=== PATIENT | male | born 1990 | race Caucasian/White ===

== ENCOUNTER → 2024-06-01 13:25 | Outpatient (CLI) | payer SELFPAY ==
--- NOTE | 2024-06-01 13:38 | DI.RAD.S_ITS ---
PROCEDURE: XR TIBIA FIBULA LT 2V INDICATIONS: Lower extremity injury TECHNIQUE: 2 views of the tibia and fibula were acquired. COMPARISON: None. FINDINGS: Bones: No fractures or dislocations. No suspicious bony lesions. Soft tissues: No suspicious soft tissue calcifications or masses. IMPRESSION: No acute bony abnormality. Dictated by: Rolando Perera M.D. on 06/01/2024 at 16:44 Approved by: Rolando Perera M.D. on 06/01/2024 at 16:45
--- NOTE | 2024-06-01 13:38 | DI.RAD.S_ITS ---
PROCEDURE: XR ANKLE LT MIN 3V INDICATIONS: Lower extremity injury TECHNIQUE: 3 views of the ankle were acquired. COMPARISON: None. FINDINGS: No acute fracture or dislocation. The ankle mortise is preserved on the nonweightbearing view. No talar dome osteochondral defect. Small tibiotalar joint effusion. IMPRESSION: Small tibiotalar joint effusion. Otherwise, no acute fracture or dislocation of the left ankle. Dictated by: Rolando Perera M.D. on 06/01/2024 at 16:42 Approved by: Rolando Perera M.D. on 06/01/2024 at 16:44
== END ==
PROVIDERS: Referring Provider Nurse Practitioner Family; Visit Provider Nurse Practitioner Family
DX: S89.90XA Unspecified injury of unspecified lower leg, initial encounter (principal); M25.472 Effusion, left ankle; X58.XXXA Exposure to other specified factors, initial encounter
CPT/HCPCS: 73590; 73610